=== PATIENT | male | born 1970 | race Caucasian/White ===

== ENCOUNTER 2024-02-16 08:56 | Day surgery (SDC) | payer BC, OTHER ==
[2024-02-15 08:59] LABS: Absolute Basophils 0.1 K/uL (0-0.5); Absolute Eosinophils 0.3 K/uL (0-0.5); Absolute Lymphocytes (CBC) 1.4 K/uL (0.7-4.9); Absolute Monocytes 0.6 K/uL (0.1-1.3); Absolute Neutrophil 3.5 K/uL (1.8-8.0); Basophils % 1.1 % (0-1.3); Eosinophils % 4.7 % (0-4.4); Hematocrit 38.8 % (39.6-49.0); Hemoglobin 13.3 g/dL (13.6-17.9); Lymphocytes % 24.1 % (15.3-44.8); MCH 31.3 pg (27.0-35.0); MCHC 34.2 g/dL (32.0-36.0); MCV 91.6 fL (80-100); MPV 6.7 fL (7.6-11.3); Monocytes % 10.4 % (3.3-12.3); Neutrophils % 59.7 % (41.7-73.7); Nucleated Red Blood Cells % 0.1 % (0-0); Platelets 371 thou/uL (152-406); RBC Red Blood Cell Count 4.24 M/uL (4.33-5.43); Red Cell Distribution Width 13.1 % (12.1-15.2)
[2024-02-15 09:17] LABS: Anion Gap 7.9 mEq/L (5.0-15.0); Potassium 3.9 mEq/L (3.5-5.1)
--- NOTE | 2024-02-15 10:30 | EKG ---
Test Date: 2024-02-15 Test Time: 08:52:16 Apple Turner: CHIQUITA MEASUREMENT RESULTS: Intervals: Rate: 61 RI: 154 QRSD: 96 QT: 426 QTc: 428 Rowan: P: 38 RI: 154 QRS: 40 T: 35 INTERPRETIVE STATEMENTS: Normal sinus rhythm Normal ECG No previous ECG available for comparison Electronically Signed On 02-15-24 10:29:45 CDT by Scottie Gil
[2024-02-16] MEDS: Ringers Lactate 1,000 ML IV ONE (09:35)
[2024-02-16] MEDS ORDERED: propofoL 200 MG/20 ML VIAL IV ONE (10:48)
[2024-02-16] MEDS ORDERED: LIDOCAINE 2% MPF 5 ML VIAL ONE (10:49)
--- NOTE | 2024-02-16 11:48 | P.OP ---
Date of Service: 02/16/24 Surgeon: Dr. Yahaira Jalloh [employer] Technician: None Procedure: Evaluation of sleep disordered breathing by examination of upper airway using an endoscope; CPT: 91099 Preoperative diagnosis: Moderate or severe obstructive sleep apnea with positive airway pressure intolerance. BMI 26.6 Postoperative diagnosis: Moderate or severe sleep apnea with positive pressure airway intolerance. BMI 26.6 Anesthesia: IV sedation Estimated blood loss: None Complications: none Brief clinical history: This is a 53-year-old patient with a history of moderate to severe symptomatic obstructive sleep apnea who is intolerant and unable to achieve benefit with positive pressure therapy. The patient was diagnosed with obstructive sleep apnea approximately 6 years ago with a current ESS of 14 and trial of positive airway pressure with several different types of masks but persistent intolerance. His AHI was 21. The patient also tried a dental appliance for about 2 weeks without success, it made his mouth sore and did not seem to improve his daytime fatigue and sleepiness. He notes that he moves around a lot at night and the mask frequently comes off and has never been able to use the PAP device effectively for more than 4 hours on a consistent basis. They present today for drug-induced sleep endoscopy to better characterize the location and pattern of obstruction and to predict appropriate medical and/or surgical options moving forward Procedure findings: There was no evidence of complete concentric palatal obstruction and they appear to be a candidate anatomically for hypoglossal nerve stimulation therapy. Description of procedure: The patient was brought to the endoscopy suite and was administered anesthesia via standard drug-induced sleep endoscopy protocol. The patient was administered propofol while under monitoring including oxygen concentration, CO2, blood pressure, and pulse under conditions felt to m imic sleep. The patient was nonresponsive to verbal commands but maintained spontaneous respiration. Patient was noted to have observed apnea and snoring consistent with diagnosis of obstructive sleep apnea. Under these conditions, the flexible endoscope was inserted into both sides of the nose and advanced to the nasopharynx, and oral pharynx with observation of the larynx. The patient had mild deviated septum. The right and left nasal cavity showed mild mucosal crusting but no evidence of polyps or other abnormality of the middle meatus. There was no evidence of purulent sinusitis. The nasopharynx was unremarkable with a average degree of adenoid tissue for patient's age. There was variable anterior posterior collapse of the soft palate but no significant concentric palatal obstruction. With advancement of the scope into the oral pharynx there was moderate collapse of the base of tongue and a slightly V shaped epiglottis with mild epiglottic collapse. At the conclusion of the exam, the scope was withdrawn. There was no evidence of any injury to the nasal mucosa and no evidence of active epistaxis. The patient was monitored with spontaneous ventilation until the patient's level of alertness increased and they responded to verbal commands and demonstrated active and intact control of their airway. The patient was then transferred to appropriate recovery prior to discharge. In summary, there was no evidence of complete concentric palatal obstruction and they appeared to be a candidate anatomically for hypoglossal nerve stimulation. I was present for and personally performed the entire procedure.
[2024-02-16 12:20] VITALS: BP 123/74; TEMP 97.9; O2SAT 98
== END 2024-02-16 12:33 | disposition home or self-care (01) ==
LOC: OR 08:56
PROVIDERS: ATTEND Otolaryngology
PROC: 0CJY8ZZ Inspection of Mouth and Throat, Via Natural or Artificial Opening Endoscopic (ICD-10-PCS; principal; 2024-02-16 10:15)
DX: G47.33 Obstructive sleep apnea (adult) (pediatric) (principal); Z68.26 Body mass index [BMI] 26.0-26.9, adult
CPT/HCPCS: 93005; 85025; 80048; 36415; 42975; J2704; J2001; J7120

== ENCOUNTER 2024-03-22 08:04 | Day surgery (SDC) | payer BC ==
[2024-03-20 13:26] LABS: Absolute Basophils 0.1 K/uL (0-0.5); Absolute Eosinophils 0.3 K/uL (0-0.5); Absolute Lymphocytes (CBC) 1.8 K/uL (0.7-4.9); Absolute Monocytes 0.6 K/uL (0.1-1.3); Anion Gap 9.8 mEq/L (5.0-15.0); Eosinophils % 4.8 % (0-4.4); Hematocrit 42.5 % (39.6-49.0); Hemoglobin 14.4 g/dL (13.6-17.9); MCH 31.5 pg (27.0-35.0); MCHC 33.9 g/dL (32.0-36.0); MCV 92.8 fL (80-100); MPV 7.1 fL (7.6-11.3); Monocytes % 10.2 % (3.3-12.3); Platelets 324 thou/uL (152-406); Potassium 3.8 mEq/L (3.5-5.1); RBC Red Blood Cell Count 4.57 M/uL (4.33-5.43); Red Cell Distribution Width 13.2 % (12.1-15.2)
[2024-03-22] MEDS: Ringers Lactate 1,000 ML IV ONE ×2 (08:25→11:50)
[2024-03-22] MEDS ORDERED: propofoL 200 MG/20 ML VIAL IV ONE (10:05)
[2024-03-22] MEDS ORDERED: LIDOCAINE 1% MPF 5 ML VIAL ONE (10:05)
[2024-03-22] MEDS ORDERED: ONDANSETRON 4 MG/2 ML VIAL ONE (10:05)
[2024-03-22] MEDS ORDERED: MIDAZOLAM HCL 2 MG/2 ML INJ ONE (10:05)
[2024-03-22] MEDS ORDERED: dexAMETHasone 10 MG/ML VIAL ONE (10:05)
[2024-03-22] MEDS ORDERED: FENTANYL CITR 100 MCG/2 ML ONE (10:05)
[2024-03-22] MEDS ORDERED: ROCURONIUM 50 MG/5 ML VIAL IV ONE (10:06)
[2024-03-22] MEDS ORDERED: KETOROLAC 30 MG/ML INJ ONE (10:07)
[2024-03-22] MEDS: CEFAZOLIN SODIUM 1 GM/VIAL ONE (11:00)
[2024-03-22] MEDS ORDERED: EPHEDRINE SULF 50 MG/ML VIAL ONE (11:20)
[2024-03-22] MEDS: LIDOCAINE HCL/EPINEPHRINE 20 ML MDV ONE (11:21)
[2024-03-22] MEDS ORDERED: GLYCOPYRROLATE 0.2 MG/ML SYR ONE (13:09)
--- NOTE | 2024-03-22 13:47 | P.OP ---
Date of Service: 03/22/24 Surgeon: Dr. Yahaira Jalloh CPT: 48774 insertion of hypoglossal nerve neurostimulator electrode and generator and breathing sensor electrode Preoperative diagnosis: Obstructive sleep apnea with positive airway pressure intolerance Postoperative diagnosis: Same Anesthesia: General via endotracheal tube Estimated blood loss: 15ml Complications: [None] Intraoperative findings: Initial placement appeared adequate but during reassessment and adjustments, the cuff became displaced and was repositioned Brief clinical history: This is a 53-year-old patient with a history of moderate to severe obstructive sleep apnea and an associated body mass index of 25.8. The patient was intolerant and unable to achieve benefit from positive pressure therapy. The patient has passed the clinical, polysomnographic, and endoscopic screening criteria and presents today for implant Procedure description: The patient was brought to the operating room and placed under general anesthesia via endotracheal intubation. The head of bed was turned 180 degrees. The patient's neck and external anatomy was palpated and examined with planned incisions marked with a surgical pen. Monitoring electrodes were placed within the genioglossus and hypoglossal muscle and connected to the NIM box for intraoperative nerve monitoring. The grounding electrode was placed in the patient's left shoulder. The patient's face, neck, and chest was prepped and draped in a sterile fashion with the head turned to the left for best exposure of the right neck. A modified submandibular incision was made through the skin, approximately 2 cm below the inferior aspect of the mandible. Dissection was carried down through the subcutaneous tissue and platysma. The platysma was divided and additional dissection was carried out for identification of the anterior/inferior border of the submandibular gland. The digastric tendon was identified. 2 silk sutures were placed in the digastric tendon to aid in inferior and anterior retraction. Dissection continued down into the digastric triangle and the posterior border of the mylohyoid muscle was freed and retracted anteriorly. With balanced retraction, the hypoglossal nerve was identified and carefully dissected up towards the floor of the mouth. Under microscopic visualization, the superior/posterior branches innervating the hyoglossus muscle were identified visually with anatomic clues and NIM stimulation. Once the anterior/inferior branches of the hypoglossal nerve were isolated, the cuff electrode for the hypoglossal nerve stimulator (C1778; [id number]) was placed distal to these branches innervating the genioglossus, transverse, and vertical muscles. The stimulation lead was anchored to the digastric tendon using the 2 previously placed silk sutures. Slack between the cuff and the anchor was gently tucked deep to the submandibular gland. A second 5 cm incision was made in the right upper chest over the second intercostal space, approximately 3 cm lateral to the sternal margin. Dissection was carried down through the skin and subcutaneous tissue to the fascia of the pectoralis muscle. A suprafascial inferior pocket for the generator was created with blunt dissection and the LigaSure. The pectoralis major fascia was dissected directly over the second intercostal space with subsequent blunt dissection through the muscle body. The pectoralis was retracted to expose the fatty layer just superficial to the external intercostal muscle. The fatty layer was carefully and bluntly dissected to expose the external intercostal muscles. A small fasciotomy through the external intercostals was performed and the respiratory sensing lead (C1778; [id number]) was advanced with the sensor facing the pleura into the interfascial plane between the external and internal intercostals. The sensing lead was anchored with 3-0 silk to the fascia of the external intercostals. Secondary anchoring sutures of 3-0 silk were placed to the pectoralis major fascia, allowing adequate slack between the anchors. The stimulation lead was then tunneled in a subplatysmal plane with blunt dissec tion under direct visualization and brought out to the subclavicular pocket where both the stimulation lead and respiratory sensing lead were connected to the implantable pulse generator, using the 2 person, 3 handed approach. The implantable pulse generator (C1767; [id number]) was placed in the subclavicular subcutaneous pocket ensuring lead body was deep to the generator and secured with air knots to the pectoralis fascia using 2-0 silk suture. Diagnostic evaluation confirmed good placement of the stimulation cuff as demonstrated by activation of the genioglossus, and transverse and vertical muscles resulting in unhindered, stiffened tongue protrusion confirmed visually. Diagnostic evaluation also confirmed good respiratory sensor placement as demonstrated by sensing waveform with good rise and fall associated with patient respirations. During reevaluation of cuff placement, the stay sutures had been anchored in such a way that the stay sutures and lead required repositioning. During a djustments, the cuff became displaced and the microscope was brought back to the field. The cuff was then replaced onto the nerve, excluding the C1 branch since it was felt that inclusion may have resulted in insufficient or less secure placement of the stimulator lead. Once the cuff was rereplaced and the stay sutures were secured to the digastric tendon, additional testing was performed demonstrating appropriate function of the hypoglossal nerve stimulator. All the wounds were thoroughly irrigated and closed in 3 layers with deep Polysorb sutures and 4-0 Monocryl subcuticular sutures. Mastisol and Steri- Strips were applied followed by pressure dressings. The patient was awakened, extubated, and transferred to the recovery room in stable condition. I was present for and performed the entire procedure. All sponge and needle counts were confirmed correct by the operating room staff prior to final closure. Postoperative plan: The patient will be discharged home later today in the care of their family and follow-up with Dr. Jalloh in 10 days for wound check and suture removal if required. They will follow-up with the sleep specialist in about 6 weeks for planned activation of the device.
--- NOTE | 2024-03-22 15:21 | RAD REPORT ---
Procedure: Chest Pa And Lat (2 Views) History: Device placement inspire implant placement Comparison: none Findings: The lungs appear clear of acute infiltrate. No significant pleural effusion noted. The heart is normal size. INSPIRE device is anterior right chest ascends into the neck. No abnormalities displayed
--- NOTE | 2024-03-22 15:25 | RAD REPORT ---
EXAM:Neck Soft Tissue CLINICAL HISTORY: Neck pain FINDINGS: INSPIRE device ascends the right neck. The superior aspect overlies the right aspect of the base of t ongue.
[2024-03-22] MEDS: HYDROCODONE/APAP 7.5/325 MG TAB ONE (15:30)
[2024-03-22 16:44] VITALS: BP 122/62; TEMP 97.4; O2SAT 99
== END 2024-03-22 15:51 | disposition home or self-care (01) ==
LOC: OR 08:04
PROVIDERS: ATTEND Otolaryngology
PROC: [UNRECOGNIZED PROCEDURE] (2024-03-22)
PROC: 0JH60MZ Insertion of Stimulator Generator into Chest Subcutaneous Tissue and Fascia, Open Approach (ICD-10-PCS; principal; 2024-03-22 09:30)
DX: G47.33 Obstructive sleep apnea (adult) (pediatric) (principal); Z68.26 Body mass index [BMI] 26.0-26.9, adult
CPT/HCPCS: 85025; 80048; 36415; 71046; 70360; 64582; J2704; J2001; J2250; J3010; J1100; J2405; J7120 ×2; J0690